=== PATIENT | female | born 1980 | race Caucasian/White ===

== ENCOUNTER 2018-04-27 10:54 | Emergency (ER) | payer OTHER ==
[2018-04-27 11:40] VITALS: BP 126/76
--- NOTE | 2018-04-27 12:15 | UC ---
GI Bleed HPI - HPI Summary HPI Summary: SORE THROAT X 1 WEEK. 2 FAMILY MEMBERS WITH SORE THROAT AND ONE HAD STREP. NO FEVER OR TROUBLE WITH SWALLOW. TONGUE FEELS COATED. SON HAS SORE THROAT WELL. - History Of Current Complaint Chief Complaint: UCRespiratory Stated Complaint: THROAT COMPLAINT Time Seen by Provider: 04/27/18 11:52 Hx Obtained From: Patient Hx Last Menstrual Period: 04/24/18 Onset/Duration: Gradual Onset Timing: Constant Pain Intensity: 10 Aggravating Factor(s): Other - NOTHING Alleviating Factor(s): Other - NOTHING - Allergies/Home medications Allergies/Adverse Reactions: Allergies Allergy/AdvReac Type Severity Reaction Status Date / Time amoxicillin [From Augmentin] Allergy Swelling Verified 04/27/18 11:32 Of Face,Lips,& Throat clavulanic acid Allergy Swelling Verified 04/27/18 11:32 [From Augmentin] Of Face,Lips,& Throat latex Allergy Rash Verified 04/27/18 11:32 Penicillins Allergy Swelling Verified 04/27/18 11:32 Of Face,Lips,& Throat Sulfa (Sulfonamide Allergy Swelling Verified 04/27/18 11:32 Antibiotics) Of Face,Lips,& Throat Home Medications: Home Medications Dimethyl Fumarate [Tecfidera] 1 each PO 04/27/18 [History] Folic Acid TAB* [Folvite TAB*] 1 mg PO DAILY 04/27/18 [History Confirmed ] Gabapentin CAP(*) [Neurontin 300 CAP(*)] 600 mg PO BID 04/27/18 [History Confirmed 04/27/18] Methylphenidate HCl [Methylphenidate HCl ER] 20 mg PO 04/27/18 [History] Nortriptyline CAP* [Pamelor CAP*] 25 mg PO BEDTIME 04/27/18 [History Confirmed 04/27/18] Pantoprazole Sodium 40 mg PO DAILY 04/27/18 [History Confirmed 04/27/18] Trimethoprim TAB* 100 mg PO BID 04/27/18 [History Confirmed 04/27/18] buPROPion HCl [Bupropion HCl Xl] 150 mg PO 04/27/18 [History] traZODone TAB* [Desyrel TAB*] 300 mg PO BEDTIME 04/27/18 [History Confirmed ] PMH/Surg Hx/FS Hx/Imm Hx - Additional Past Medical History Additional PMH: ms - Surgical History Surgical History: Yes Surgery Procedure, Year, and Place: 2010. bilat carpal tunnel. tonsilectomy- 2016 - Family History Known Family History: Positive: Diabetes - Social History Occupation: Disabled Alcohol Use: None Substance Use Type: None Smoking Status (MU): Heavy Every Day Tobacco Smoker Type: Cigarettes Amount Used/How Often: 1 ppd Household Exposure Type: Cigarettes - Immunization History Vaccination Up to Date: Yes Review of Systems Constitutional: Negative Skin: Negative Eyes: Negative ENT: Sore Throat Respiratory: Negative Cardiovascular: Negative Gastrointestinal: Negative Genitourinary: Negative Motor: Negative Neurovascular: Negative Musculoskeletal: Negative Neurological: Negative Psychological: Negative All Other Systems Reviewed And Are Negative: Yes Physical Exam Triage Information Reviewed: Yes Appearance: Well-Appearing Vital Signs: Initial Vital Signs Temp 98.2 F 04/27/18 11:35 Pulse 93 04/27/18 11:35 Resp 18 04/27/18 11:35 BP 126/76 04/27/18 11:35 Pulse Ox 97 04/27/18 11:35 Vital Signs Reviewed: Yes Eyes: Positive: Conjunctiva Clear ENT: Positive: Pharynx normal, TMs normal. Negative: Nasal congestion, Nasal drainage Neck: Positive: Supple, Nontender, No Lymphadenopathy Respiratory: Positive: Lungs clear, Normal breath sounds Cardiovascular: Positive: RRR, No Murmur Abdomen Description: Positive: Nontender, No Organomegaly, Soft Bowel Sounds: Positive: Present Musculoskeletal: Positive: ROM Intact Neurological: Positive: Alert Psychological: Positive: Normal Response To Family, Age Appropriate Behavior Skin Exam: Normal Diagnostics - Laboratory Diagnostic Studies Completed/Ordered: RAPID STREP =NEG Bleed Course/Dx - Course Course Of Treatment: REAPID STREP=NEG. TX SUPPORTIVE - Differential Dx/Diagnosis Provider Diagnoses: SORE THROAT Discharge - Sign-Out/Discharge Documenting (check all that apply): Patient Departure All imaging exams completed and their final reports reviewed: No Studies - Discharge Plan Condition: Stable Disposition: HOME Patient Education Materials: Pharyngitis (ED) Referrals: Yoanna Medina NP [Primary Care Provider] - 7 Days - Billing Disposition and Condition Condition: STABLE Disposition: Home
== END 2018-04-27 12:22 | disposition home or self-care (01) ==
LOC: UCCORT 10:54
DX: J02.9 Acute pharyngitis, unspecified (principal); Z88.0 Allergy status to penicillin; Z88.8 Allergy status to other drugs, medicaments and biological substances; Z88.1 Allergy status to other antibiotic agents; F17.210 Nicotine dependence, cigarettes, uncomplicated
CPT/HCPCS: 87651; 99201; G0463